=== PATIENT | female | born 1995 | race Two or more races ===

== ENCOUNTER 2024-05-06 16:21 | Emergency (ER) | payer MEDICAID, SELFPAY ==
--- NOTE | ~2024-05-06 | US_ITS ---
EXAMINATION: US OB <=14 wk fetus w TV INDICATION: 10 weeks, vaginal bleeding, cramping TECHNIQUE: Sonography of the pelvis was performed by transabdominal and transvaginal techniques. COMPARISON: None. RESULT: Uterus: 8.3 x 4.8 x 5.9 cm. Anteverted. Homogenous myometrium. Intrauterine gestational sac: Single present. The gestational sac is irregular. Mean Sac Diameter: N ot measured. Hypoechoic cystic structure measuring 1.4 cm adjacent to the pole which may repres ent amniotic sac or an enlarged yolk sac. Embryo: A possible pole is present. [place] rump length: 0.57 cm, corresponding gestational age 6 weeks, 2 days. Gestational heart rate: Absent. Subgestational hematoma: Absent . Right ovary: 1.8 x 1.6 x 2.0 cm. Vascular flow is present. 0.8 cm cyst versus dominant follicle. Left ovary: Not visualized. No adnexal mass. Pelvis free fluid: None. IMPRESSION: Irregular gestational sac, possible pole identified without definite heart motion. Estimated Gestational Age: 6 weeks, 2 days by crown rump length. ANIA by ultrasound 12/28/2024. Findings are suspicious for but not diagnostic of failure. Recommend close clinical and son ographic follow-up. Reviewed, dictated and finalized at location [facility] IMPRESSION: Irregular gestational sac, possible pole identified without definite feta l heart motion. Estimated Gestational Age: 6 weeks, 2 days by crown rump length. ANIA by ultras ound 12/28/2024. Findings are suspicious for but not diagnostic of failure. Recommend close clinical and sonographic follow-up.
[2024-05-06 16:25] VITALS: BP 140/88; PULSE 99; RESP 15; TEMP 36.3; O2SAT 99
--- NOTE | 2024-05-06 16:34 | ED.PREGNANCY ---
HPI - General Chief complaint: Vaginal Bleeding <SANDY Mike Last Filed: 05/06/24 16:38> Stated complaint: vag bleed <SANDY Mike Last Filed: 05/06/24 16:38> Time Seen by Provider: 05/06/24 16:34 <SANDY Mike Last Filed: 05/06/24 16:38> Focused HPI: Patient is a 28 y/o female who presents the ED with report of vaginal bleeding. Patient is at approximately 10 weeks gestation. She recently moved to the area and does not have an OBGYN yet. She did have an ultrasound in [place] at around 6 weeks which was normal. She reports having light vaginal spotting yesterday and today with wiping. Is not soaking through pads. Reports slight lower abdominal cramping. Denies significant pain. Denies urinary complaints. Denies fevers. GENERAL: Well-appearing, well-nourished, and in no acute distress. HEAD: Normocephalic, atraumatic. CHEST: Clear to auscultation. ?No respiratory distress. HEART: Regular rate and rhythm.? NEURO: ?Alert and oriented x3. Patient screened in triage and initial orders placed.? ?Additional care and disposition to be based upon?diagnostic testing and treatment. <SANDY Mike Last Filed: 05/06/24 16:38> Source: patient <SANDY Mike Last Filed: 05/06/24 16:38> Mode of arrival: ambulatory <SANDY Mike Last Filed: 05/06/24 16:38> Limitations: no limitations <SANDY Mike Last Filed: 05/06/24 16:38> History of Present Illness HPI Narrative: Agree with MSE note <SANDY Swartz Last Filed: 05/06/24 19:36> Related Data Allergies/Adverse reactions: Allergies Allergy/AdvReac Type Severity Reaction Status Date / Time No Known Allergies Allergy Verified 05/06/24 16:26 <SANDY Mike Filed: 05/06/24 16:38> Review of Systems Review of Systems: All systems as dictated in HPI <SANDY Swartz Last Filed: 05/06/24 19:36> Exam Narrative: GENERAL: Well-appearing, well-nourished, and in no acute distress. HEAD: Normocephalic, atraumatic. EYES: PERRLA and EOMI. ENT: Nares clear, no rhinorrhea or epistaxis. Mucous membranes moist. Oropharynx without tonsillar hypertrophy exudate or other lesions. NECK: Supple. No adenopathy or masses. CHEST: No respiratory distress. Clear to auscultation. No wheezes rales or rhonchi HEART: Regular rate and rhythm. No murmur heard. Normal peripheral pulses. ABDOMEN: Soft, nontender, nondistended, normal active bowel sounds. MSK: Normal range of motion. No edema. SKIN: Warm, dry, no rash. NEURO: Alert and oriented x4. No focal deficits. PSYCH: Normal mood and affect. <Shakir Scott PA-C - Last Filed: 05/06/24 19:36> Course Vital Signs Vital signs: Vital Signs Temperature 97.3 F L 05/06/24 16: Pulse Rate 99 05/06/24 16:25 Respiratory Rate 15 05/06/24 16:25 Blood Pressure 140/88 05/06/24 16:25 Pulse Oximetry 99 05/06/24 16:25 Temperature 97.3 F L 05/06/24 16:25 Pulse Rate 99 05/06/24 16:25 Respiratory Rate 15 05/06/24 16:25 Blood Pressure 140/88 05/06/24 16:25 Pulse Oximetry 99 05/06/24 16:25 <Karime Fernandez PA-C - Last Filed: 05/06/24 16:38> Vital Signs Temperature 97.3 F L 05/06/24 16: Pulse Rate 99 05/06/24 16:25 Respiratory Rate 15 05/06/24 16:25 Blood Pressure 140/88 05/06/24 16:25 Pulse Oximetry 99 05/06/24 16:25 Temperature 97.3 F L 05/06/24 16:25 Pulse Rate 99 05/06/24 16:25 Respiratory Rate 15 05/06/24 16:25 Blood Pressure 140/88 05/06/24 16:25 Pulse Oximetry 99 05/06/24 16:25 <Shakir Scott PA-C - Last Filed: 05/06/24 19:36> MDM - OB/Uterine Contractions MDM Narrative Medical decision making narrative: MSE by ANNY in triage. <Karime Fernandez PA-C - Last Filed: 05/06/24 16:38> MSE by ANNY in triage. This is a 28-year-old female who presents to the ED for chief complaint of vaginal bleeding/spotting for the past 2 days, newly . Vitals are normal. Exam is benign. She is resting comfortably in bed. HCG today is 3265. Urinalysis positive for glucose, protein and trace ketones. Obstetrical ultrasound: IMPRESSION: Irregular gestational sac, possible pole identified without definite heart motion. Estimated Gestational Age: 6 weeks, 2 days by crown rump length. ANIA by ultrasound 12/28/2024. Findings are suspicious for but not diagnostic of failure. Recommend close clinical and sonographic follow-up. Presentation consistent with threatened /miscarriage. She will be given OB follow-up. She still well-appearing on re-evaluation. Questions have been answered and natural course was discussed. Patient will be discharged in stable condition. Supportive measures discussed and return precautions given. Patient is understanding and agreeable with plan for discharge with OB follow-up. <Shakir Scott PA-C - Last Filed: 05/06/24 19:36> Lab Data Result diagrams: 05/06/24 16:34 05/06/24 16:34 <Karime Fernandez PA-C - Last Filed: 05/06/24 16:38> Labs: Lab Results 05/06/24 05/06/24 Range/Units 16:34 16:43 WBC 10.7 H (4.5-10.0) K/mm3 RBC 4.82 (4.2-5.4) M/mm3 Hgb 14.2 (12.0-15.0) g/dL Hct 42.3 (37.0-47.0) % MCV 87.8 (80-100) fl MCH 29.5 (26-34) pg MCHC 33.6 (32-36) g/dl RDW 12.7 (11.5-14.5) % Plt Count 258 (150-375) k/mm3 MPV 10.4 (7.4-10.4) fl Immature Gran % (Auto) 0.2 (0-0.5) % Neut % (Auto) 54.0 (45.5-73.1) % Lymph % (Auto) 39.2 (18.3-44.2) % [place] % (Auto) 4.6 (2.6-8.5) % Eos % (Auto) 1.3 (0-4.4) % Baso % (Auto) 0.7 (0.2-1.2) % Lymph # (Auto) 4.18 H (0.9-3.2) K/mm3 [place] # (Auto) 0.5 (0.1-0.6) K/mm3 Eos # (Auto) 0.1 (0-0.3) K/mm3 Baso # (Auto) 0.1 (0.0-0.1) K/mm3 Abs Immat Gran (auto) 0.02 (0.00-0.031) K/mm3 Absolute Neuts (auto) 5.8 (1.3-6.7) K/mm3 Absolute Nucleated RBC 0.000 (0.0-0.012) K/mm3 Nucleated RBC % 0.0 (0.0-0.2) % PT 12.5 (11.1-14.7) Seconds INR 0.9 APTT 26.6 (22.3-36.8) Seconds Sodium 135 L (137-145) mmol/L Potassium 4.0 (3.4-5.0) mmol/L Chloride 98 (98-107) mmol/L Carbon Dioxide 21 L (22-30) mmol/L Anion Gap 16 H (4-12) mmol/L BUN 4 L (7-17) mg/dL Creatinine 0.36 L (0.7-1.0) mg/dL Estim Creat Clear Calc 179 ml/min Estimated GFR > 60 (59 - ) Glucose 236 H (65-110) mg/dL Calcium 10.1 (8.4-10.2) mg/dL Total Bilirubin 0.8 (0.2-1.3) mg/dL AST 57 H (14-36) U/L ALT 55 H (6-35) U/L Alkaline Phosphatase 108 (38-126) U/L Total Protein 9.0 H (6.3-8.2) g/dL Albumin 4.8 (3.5-5.1) g/dL Beta HCG, Quant 3265.90 mIU/ML Urine Color Yellow (Yellow) Urine Appearance Clear (Clear) Urine pH 6.5 (5.0-9.0) Ur Specific [place] 1.032 (1.001-1.035) Urine Protein 3+ H (Negative) mg/dL Urine Glucose (UA) 3+ H (Negative) mg/dL Urine Ketones Trace H (Negative) mg/dL Ur Blood (Man) 2+ H (Negative) Urine Nitrate Negative (Negative) Urine Bilirubin Negative (Negative) Urine Urobilinogen 1.0 (<2.0) mg/dL Leukocyte Esterase Rfl Negative (Negative) JUSTO/UL Urine RBC 0-2 (0-2) /hpf Urine WBC 0-5 (0-3) /hpf Ur Squamous Epith Cells None seen (Few) /hpf Urine Bacteria None seen /hpf Urine Casts 0-2 Blood Type A Positive Antibody Screen Negative Screen TNP Baby's Blood Type Not Reportable Baby's DALTON Not Reportable Doses of RhIg Required 0 <Karime Fernandez PA-C - Last Filed: 05/06/24 16:38> Lab Results 05/06/24 05/06/24 Range/Units 16:34 16:43 WBC 10.7 H (4.5-10.0) K/mm3 RBC 4.82 (4.2-5.4) M/mm3 Hgb 14.2 (12.0-15.0) g/dL Hct 42.3 (37.0-47.0) % MCV 87.8 (80-100) fl MCH 29.5 (26-34) pg MCHC 33.6 (32-36) g/dl RDW 12.7 (11.5-14.5) % Plt Count 258 (150-375) k/mm3 MPV 10.4 (7.4-10.4) fl Immature Gran % (Auto) 0.2 (0-0.5) % Neut % (Auto) 54.0 (45.5-73.1) % Lymph % (Auto) 39.2 (18.3-44.2) % [place] % (Auto) 4.6 (2.6-8.5) % Eos % (Auto) 1.3 (0-4.4) % Baso % (Auto) 0.7 (0.2-1.2) % Lymph # (Auto) 4.18 H (0.9-3.2) K/mm3 [place] # (Auto) 0.5 (0.1-0.6) K/mm3 Eos # (Auto) 0.1 (0-0.3) K/mm3 Baso # (Auto) 0.1 (0.0-0.1) K/mm3 Abs Immat Gran (auto) 0.02 (0.00-0.031) K/mm3 Absolute Neuts (auto) 5.8 (1.3-6.7) K/mm3 Absolute Nucleated RBC 0.000 (0.0-0.012) K/mm3 Nucleated RBC % 0.0 (0.0-0.2) % PT 12.5 (11.1-14.7) Seconds INR 0.9 APTT 26.6 (22.3-36.8) Seconds Sodium 135 L (137-145) mmol/L Potassium 4.0 (3.4-5.0) mmol/L Chloride 98 (98-107) mmol/L Carbon Dioxide 21 L (22-30) mmol/L Anion Gap 16 H (4-12) mmol/L BUN 4 L (7-17) mg/dL Creatinine 0.36 L (0.7-1.0) mg/dL Estim Creat Clear Calc 179 ml/min Estimated GFR > 60 (59 - ) Glucose 236 H (65-110) mg/dL Calcium 10.1 (8.4-10.2) mg/dL Total Bilirubin 0.8 (0.2-1.3) mg/dL AST 57 H (14-36) U/L ALT 55 H (6-35) U/L Alkaline Phosphatase 108 (38-126) U/L Total Protein 9.0 H (6.3-8.2) g/dL Albumin 4.8 (3.5-5.1) g/dL Beta HCG, Quant 3265.90 mIU/ML Urine Color Yellow (Yellow) Urine Appearance Clear (Clear) Urine pH 6.5 (5.0-9.0) Ur Specific [place] 1.032 (1.001-1.035) Urine Protein 3+ H (Negative) mg/dL Urine Glucose (UA) 3+ H (Negative) mg/dL Urine Ketones Trace H (Negative) mg/dL Ur Blood (Man) 2+ H (Negative) Urine Nitrate Negative (Negative) Urine Bilirubin Negative (Negative) Urine Urobilinogen 1.0 (<2.0) mg/dL Leukocyte Esterase Rfl Negative (Negative) JUSTO/UL Urine RBC 0-2 (0-2) /hpf Urine WBC 0-5 (0-3) /hpf Ur Squamous Epith Cells None seen (Few) /hpf Urine Bacteria None seen /hpf Urine Casts 0-2 Blood Type A Positive Antibody Screen Negative Screen TNP Baby's Blood Type Not Reportable Baby's DAL[place] Not Reportable Doses of RhIg Required 0 <Shakir Scott PA-C - Last Filed: 05/06/24 19:36> Discharge Plan Discharge Clinical Impression: Threatened miscarriage <SANDY Mike Last Filed: 05/06/24 16:38> Patient Disposition: Home, Self-Care <SANDY Mike Last Filed: 05/06/24 16:38> Condition: Stable <Karime Fernandez PA-C - Last Filed: 05/06/24 16:38> Instructions: Antibiotic Form, Threatened Miscarriage (ED) <SANDY Mike Last Filed: 05/06/24 16:38> Additional Instructions: Exam today is concerning for possible miscarriage. Please follow-up closely with Ob on this issue. They will want to do a repeat evaluation. If you have any new or worsening symptoms please return to the ER for further evaluation. <Karime Fernandez PA-C - Last Filed: 05/06/24 16:38> Patient Language: Armenian <Karime Fernandez PA-C - Last Filed: 05/06/24 16:38> Follow-up/Referrals: Cezar Wolfe MD [Physician] - PHYSICIAN NOT ON STAFF,NONSTAFF [Primary Care Provider] - <Karime Fernandez PA-C - Last Filed: 05/06/24 16:38> Time of Disposition: 19:21 <Karime Fernandez PA-C - Last Filed: 05/06/24 16:38> 19:21 <Shakir Scott PA-C - Last Filed: 05/06/24 19:36>
[2024-05-06 16:45] LABS: Basophils Absolute Auto 0.1 K/mm3 (0.0-0.1); Basophils Percent Auto 0.7 % (0.2-1.2); Eosinophils Absolute Auto 0.1 K/mm3 (0-0.3); Eosinophils Percent Auto 1.3 % (0-4.4); Hematocrit 42.3 % (37.0-47.0); Hemoglobin 14.2 g/dL (12.0-15.0); Immature Granulocyte Absolute 0.02 K/mm3 (0.00-0.031); Immature Granulocyte Percent A 0.2 % (0-0.5); Lymphocytes Absolute Auto 4.18 K/mm3 (0.9-3.2); Lymphocytes Percent Auto 39.2 % (18.3-44.2); Mean Corpuscular HGB Conc 33.6 g/dl (32-36); Mean Corpuscular Hemoglobin 29.5 pg (26-34); Mean Corpuscular Volume 87.8 fl (80-100); Mean Platelet Volume 10.4 fl (7.4-10.4); Monocytes Absolute Auto 0.5 K/mm3 (0.1-0.6); Monocytes Percent Auto 4.6 % (2.6-8.5); Neutrophils Absolute Auto 5.8 K/mm3 (1.3-6.7); Platelet Count Result 258 k/mm3 (150-375); Red Blood Count 4.82 M/mm3 (4.2-5.4); Red Cell Distribution Width 12.7 % (11.5-14.5); White Blood Count 10.7 K/mm3 (4.5-10.0)
[2024-05-06 16:55] LABS: Add Urine Microscopic? YES; Appearance Urine Clear (Clear); Bacteria Urine None Seen /hpf; Bilirubin Urine Negative (Negative); Blood Urine 2+ (Negative); Color Urine Yellow (Yellow); Glucose Urine UA 3+ mg/dL (Negative); Ketones Urine Trace mg/dL (Negative); Leukocyte Esterase Ur Negative LEU/UL (Negative); Nitrate Urine Negative (Negative); Non Pathogenic Casts 0-2; Protein Urine 3+ mg/dL (Negative); RBC Urine 0-2 /hpf (0-2); Specific Grav Ur 1.032 (1.001-1.035); Squamous Epithelial Cell Urine None Seen /hpf (Few); WBC Urine 0-5 /hpf (0-3); pH Urine 6.5 (5.0-9.0)
[2024-05-06 16:56] LABS: INR 0.9; Prothrombin Time 12.5 Seconds (11.1-14.7)
[2024-05-06 16:57] LABS: Alanine Aminotransferase 55 U/L (6-35); Albumin Level 4.8 g/dL (3.5-5.1); Alkaline Phosphatase 108 U/L (38-126); Anion Gap 16 mmol/L (4-12); Aspartate Amino Transferase 57 U/L (14-36); Bilirubin,Total 0.8 mg/dL (0.2-1.3); Blood Urea Nitrogen 4 mg/dL (7-17); Calcium 10.1 mg/dL (8.4-10.2); Carbon Dioxide 21 mmol/L (22-30); Chloride 98 mmol/L (98-107); Estimated CRCL calculation 179 ml/min; Estimated Glomerular Filt Rate > 60; Glucose 236 mg/dL (65-110); Partial Thromboplastin Time 26.6 Seconds (22.3-36.8); Sodium 135 mmol/L (137-145)
[2024-05-06 19:55] VITALS: BP 124/70; PULSE 89; RESP 16; O2SAT 100
== END 2024-05-06 19:56 | disposition home or self-care (01) ==
PROVIDERS: Emergency Medicine; Physician Assistant; Emergency Provider Physician Assistant
DX: O20.0 Threatened abortion (principal); Z3A.10 10 weeks gestation of pregnancy
CPT/HCPCS: 36415; 76801; 76817; 80053; 81001; 84702; 85025; 85461; 85610; 85730; 86850; 86900; 86901; 99284

== ENCOUNTER 2024-05-08 00:11 | Emergency (ER) | payer SELFPAY ==
[2024-05-08] VITALS (18 sets, daily range): BP systolic 111–137; BP diastolic 80–96; PULSE 79–106; RESP 18–35; TEMP 36.6; O2SAT 97–100
--- NOTE | 2024-05-08 01:39 | ED_ITS ---
HPI - General Adult General Chief complaint: Vaginal Bleeding Stated complaint: miscarriage possible, here yesterday same c/c Time Seen by Provider: 05/08/24 00:17 History of Present Illness HPI narrative: This is a 28-year-old female presenting with vaginal bleeding. She was seen here yesterday where she had an ultrasound that was concerning for intrauterine demise. She was discharged the diagnosis of threatened miscarriage. Today she developed having significant vaginal bleeding and lower abdominal cramping. Present given the evaluation Related Data Allergies Allergy/AdvReac Type Severity Reaction Status Date / Time No Known Allergies Allergy Verified 05/06/24 16:26 Exam 2 Narrative: APPEARANCE: No apparent distress. Head: atraumatic. EYES: EOMI, NOSE: Atraumatic NECK: Trachea midline RESPIRATORY: No increased rate of breathing clear to auscultation CARDIOVASCULAR: RRR, ABDOMINAL: Non-distended soft nontender no guarding rebound MUSCULOSKELETAl: No obvious deformities NEURO: Alert. Moving 4/4 extremities SKIN:: Warm, dry. Normal color PSYCHIATRIC: Normal affect Course Vital Signs Vital signs: Vital Signs Temperature 97.8 F 05/08/24 00:19 Pulse Rate 89 05/08/24 00:19 Respiratory Rate 18 05/08/24 00:19 Blood Pressure 137/96 H 05/08/24 00:19 Pulse Oximetry 100 05/08/24 00:19 Oxygen Delivery Room Air 05/08/24 00:19 Temperature 97.8 F 05/08/24 00:19 Pulse Rate 99 05/08/24 02:01 Respiratory Rate 20 05/08/24 02:01 Blood Pressure 118/80 05/08/24 02:01 Pulse Oximetry 98 05/08/24 02:01 Oxygen Delivery Room Air 05/08/24 00:19 Medical Decision Making [facility] [place] Narrative Medical decision making narrative: -Course: 28-year-old female presenting with vaginal bleeding. HCG is down trending. Vital signs stable. Pelvic exam showed a slightly dilated cervical os with no retained tissue. No active hemorrhage. Bleeding has slowed down. Patient was educated on expected course. She has an OBGYN to call tomorrow morning for follow-up. Patient will be discharged. Given bleeding precautions. -DDX includes but is not limited to: Miscarriage, inevitable miscarriage Vital Signs Vital Signs: Vital Signs Temperature 97.8 F 05/08/24 00:19 Pulse Rate 89 05/08/24 00:19 Respiratory Rate 18 05/08/24 00:19 Blood Pressure 137/96 H 05/08/24 00:19 Pulse Oximetry 100 05/08/24 00:19 Oxygen Delivery Room Air 05/08/24 00:19 Temperature 97.8 F 05/08/24 00:19 Pulse Rate 99 05/08/24 02:01 Respiratory Rate 20 05/08/24 02:01 Blood Pressure 118/80 05/08/24 02:01 Pulse Oximetry 98 05/08/24 02:01 Oxygen Delivery Room Air 05/08/24 00:19 Lab Data 05/08/24 01:32 05/08/24 01:32 Labs: Lab Results 05/08/24 Range/Units 01:32 WBC 11.4 H (4.5-10.0) K/mm3 RBC 4.56 (4.2-5.4) M/mm3 Hgb 13.5 (12.0-15.0) g/dL Hct 40.5 (37.0-47.0) % MCV 88.8 (80-100) fl MCH 29.6 (26-34) pg MCHC 33.3 (32-36) g/dl RDW 12.7 (11.5-14.5) % Plt Count 252 (150-375) k/mm3 MPV 10.6 H (7.4-10.4) fl Immature Gran % (Auto) 0.4 (0-0.5) % Neut % (Auto) 62.5 (45.5-73.1) % Lymph % (Auto) 30.5 (18.3-44.2) % [place] % (Auto) 4.5 (2.6-8.5) % Eos % (Auto) 1.7 (0-4.4) % Baso % (Auto) 0.4 (0.2-1.2) % Lymph # (Auto) 3.48 H (0.9-3.2) K/mm3 [place] # (Auto) 0.5 (0.1-0.6) K/mm3 Eos # (Auto) 0.2 (0-0.3) K/mm3 Baso # (Auto) 0.0 (0.0-0.1) K/mm3 Abs Immat Gran (auto) 0.04 H (0.00-0.031) K/mm3 Absolute Neuts (auto) 7.2 H (1.3-6.7) K/mm3 Absolute Nucleated RBC 0.000 (0.0-0.012) K/mm3 Nucleated RBC % 0.0 (0.0-0.2) % Sodium 135 L (137-145) mmol/L Potassium 3.9 (3.4-5.0) mmol/L Chloride 99 (98-107) mmol/L Carbon Dioxide 19 L (22-30) mmol/L Anion Gap 17 H (4-12) mmol/L BUN 8 (7-17) mg/dL Creatinine 0.41 L (0.7-1.0) mg/dL Estim Creat Clear Calc 160 ml/min Estimated GFR > 60 (59 - ) Glucose 296 H (65-110) mg/dL Calcium 9.9 (8.4-10.2) mg/dL Total Bilirubin 0.7 (0.2-1.3) mg/dL AST 49 H (14-36) U/L ALT 49 H (6-35) U/L Alkaline Phosphatase 104 (38-126) U/L Total Protein 8.0 (6.3-8.2) g/dL Albumin 4.3 (3.5-5.1) g/dL Beta HCG, Quant 2111.30 mIU/ML Discharge Plan Discharge Clinical Impression: Miscarriage Patient Disposition: Home, Self-Care Condition: Stable Instructions: Antibiotic Form, Miscarriage (ED) Additional Instructions: Please use Motrin Tylenol for pain. Please follow-up with the OBGYN listed for further management. You develop severe abdominal pain, bleeding of more than 1 pad per hour for 2 hours (soaked side to side and front to back) , or dizziness/lightheadedness please return to the ED for re-evaluation. Patient Language: Italian Follow-up/Referrals: PHYSICIAN NOT ON STAFF,NONSTAFF [Primary Care Provider] -
[2024-05-08 01:42] LABS: Basophils Percent Auto 0.4 % (0.2-1.2); Eosinophils Absolute Auto 0.2 K/mm3 (0-0.3); Eosinophils Percent Auto 1.7 % (0-4.4); Hematocrit 40.5 % (37.0-47.0); Hemoglobin 13.5 g/dL (12.0-15.0); Immature Granulocyte Absolute 0.04 K/mm3 (0.00-0.031); Immature Granulocyte Percent A 0.4 % (0-0.5); Lymphocytes Absolute Auto 3.48 K/mm3 (0.9-3.2); Lymphocytes Percent Auto 30.5 % (18.3-44.2); Mean Corpuscular HGB Conc 33.3 g/dl (32-36); Mean Corpuscular Hemoglobin 29.6 pg (26-34); Mean Corpuscular Volume 88.8 fl (80-100); Mean Platelet Volume 10.6 fl (7.4-10.4); Monocytes Absolute Auto 0.5 K/mm3 (0.1-0.6); Monocytes Percent Auto 4.5 % (2.6-8.5); Neutrophils Absolute Auto 7.2 K/mm3 (1.3-6.7); Neutrophils Percent Auto 62.5 % (45.5-73.1); Platelet Count Result 252 k/mm3 (150-375); Red Blood Count 4.56 M/mm3 (4.2-5.4); Red Cell Distribution Width 12.7 % (11.5-14.5); White Blood Count 11.4 K/mm3 (4.5-10.0)
[2024-05-08 01:52] LABS: Alanine Aminotransferase 49 U/L (6-35); Albumin Level 4.3 g/dL (3.5-5.1); Alkaline Phosphatase 104 U/L (38-126); Anion Gap 17 mmol/L (4-12); Aspartate Amino Transferase 49 U/L (14-36); Bilirubin,Total 0.7 mg/dL (0.2-1.3); Blood Urea Nitrogen 8 mg/dL (7-17); Calcium 9.9 mg/dL (8.4-10.2); Carbon Dioxide 19 mmol/L (22-30); Chloride 99 mmol/L (98-107); Estimated CRCL calculation 160 ml/min; Estimated Glomerular Filt Rate > 60; Glucose 296 mg/dL (65-110); Potassium 3.9 mmol/L (3.4-5.0); Sodium 135 mmol/L (137-145)
[2024-05-08] MEDS: KETOROLAC 30 MG/ML VIAL (*BKC) IM (03:14)
== END 2024-05-08 03:24 | disposition home or self-care (01) ==
PROVIDERS: Emergency Provider Emergency Medicine
DX: O03.9 Complete or unspecified spontaneous abortion without complication (principal)
CPT/HCPCS: 36415; 80053; 84702; 85025; 96372; 99284; J1885

== ENCOUNTER 2024-09-05 11:40 | Emergency (ER) | payer OTHER, SELFPAY ==
[2024-09-05 12:00] VITALS: BP 153/106; PULSE 85; TEMP 36.4; O2SAT 99
[2024-09-05] MEDS: BUPivacaine HCL 0.25% PF 30 ML VIAL INFILTRATE (12:36)
--- NOTE | 2024-09-05 12:37 | PC.NURSE ---
This RN in room at time of procedure for radio tester with MD Cage.
--- NOTE | 2024-09-05 12:42 | ED_ITS ---
HPI - General Adult General Chief complaint: Skin/Abscess/Foreign Body Stated complaint: BOIL ON THIGH GETTING BIGGER Time Seen by Provider: 09/05/24 12:01 History of Present Illness HPI narrative: 28-year-old female presenting abscess her groin. It has been getting steadily worse over last several days. She has had minimal drainage but is still painful in flexion touch. No systemic signs of illness such as fevers chills nausea diarrhea. Related Data Allergies Allergy/AdvReac Type Severity Reaction Status Date / Time No Known Allergies Allergy Verified 09/05/24 12:04 Exam Narrative: APPEARANCE: No apparent distress. Head: atraumatic. EYES: EOMI, NOSE: Atraumatic NECK: Trachea midline RESPIRATORY: No increased rate of breathing CARDIOVASCULAR: RRR, ABDOMINAL: Non-distended MUSCULOSKELETAl: No obvious deformities NEURO: Alert. Moving 4/4 extremities SKIN:: 2 x 3 cm fluctuant mass in the right inguinal fold, surrounding induration PSYCHIATRIC: Normal affect Course Vital Signs Vital signs: Vital Signs Temperature 97.5 F L 09/05/24 12:00 Pulse Rate 85 09/05/24 12:00 Blood Pressure 153/106 H 09/05/24 12:00 Pulse Oximetry 99 09/05/24 12:00 Temperature 97.5 F L 09/05/24 12:00 Pulse Rate 85 09/05/24 12:00 Blood Pressure 153/106 H 09/05/24 12:00 Pulse Oximetry 99 09/05/24 12:00 Procedures Abscess I/D other: Date of Incision: 09/05/24 Side (if applicable): right Local Anesthetic: bupivacaine 0.25% Amount of anesthesia used (mL): 8 Technique: incised with #11 blade Amount of fluid expressed (mL): 10 Irrigation: Yes Packing used?: none I&D Results: Pus and Blood Medical Decision Making MDM Narrative Medical decision making narrative: -Course: 28-year-old presenting with abscess to groin. Incised drainage. Placed on Bactrim. Discharged primary care. -DDX includes but is not limited to: Abscess cellulitis, Vital Signs Vital Signs: Vital Signs Temperature 97.5 F L 09/05/24 12:00 Pulse Rate 85 09/05/24 12:00 Blood Pressure 153/106 H 09/05/24 12:00 Pulse Oximetry 99 09/05/24 12:00 Temperature 97.5 F L 09/05/24 12:00 Pulse Rate 85 09/05/24 12:00 Blood Pressure 153/106 H 09/05/24 12:00 Pulse Oximetry 99 09/05/24 12:00 Discharge Plan Discharge Clinical Impression: Abscess Patient Disposition: Home Condition: Stable Instructions: Antibiotic Form, Abscess (ED) Additional Instructions: You were seen emergency abscess. Please take Bactrim as directed. Please follow-up with primary care physician for further management. If you develop increased redness pain feel the abscesses return can return to the ED for re- evaluation. Patient Language: Cambodian Prescriptions: New sulfamethoxazole-trimethoprim [Bactrim DS] 800-160 mg tablet 1 tablet PO Q12H Qty: 14 0RF Follow-up/Referrals: PHYSICIAN,FISHER LOBSTER [Primary Care Provider] -
[2024-09-05 12:56] LABS: BEDSIDEPREGUCG Negative (Negative)
== END 2024-09-05 13:10 | disposition home or self-care (01) ==
PROVIDERS: Emergency Provider Emergency Medicine
DX: L02.214 Cutaneous abscess of groin (principal)
CPT/HCPCS: 10060; 81025; 99283